=== PATIENT | male | born 1975 | race African-American/Black ===

== ENCOUNTER 2018-02-04 06:40 | Emergency (ER) | payer MEDICAID ==
[~2018-02-04] VITALS: Ht 177.8 cm; Wt 67.2 kg
[2018-02-04 06:40] VITALS: BP 141/87
== END 2018-02-04 07:43 | disposition home or self-care (01) ==
LOC: ED 07:05
DX: J34.0 Abscess, furuncle and carbuncle of nose (principal); F17.200 Nicotine dependence, unspecified, uncomplicated
CPT/HCPCS: 99283

== ENCOUNTER 2019-06-12 02:47 | Emergency (ER) | payer MEDICAID ==
[~2019-06-12] VITALS: Ht 180.3 cm; Wt 74.6 kg
[2019-06-12 02:58] VITALS: BP 138/82
--- NOTE | 2019-06-12 03:16 | NUR ---
THIS IS A 43Y M THAT COMES IN FOR L SIDED FACIAL SWELLING X2DAYS. PT STS "I THOUGHT IT WAS A HAIR BUMP I TRIED TO POP IT AND IT DIDN'T HELP." PT RESTING ON [place] JUNCTION CONNECTED TO MONITORING, REENA SYLVESTER.
[2019-06-12] MEDS ORDERED: CEPHALEXIN 500 MG CAPSULE ONE (03:50)
[2019-06-12] MEDS ORDERED: HYDROcodone/APAP 5/325 TABLET ONE (03:51)
[2019-06-12] MEDS ORDERED: LIDOCAINE-MPF 1%, 5ML ONE (03:51)
--- NOTE | 2019-06-12 03:57 | NUR ---
PT STS DOES NOT WANT ABCESS DRAINED, ONLY WANTS TO TAKE ABX AND SEE IF IT IMPROVES.
--- NOTE | 2019-06-12 03:59 | NUR ---
AT BEDSIDE TO DISCUSS POC WITH PT AT THIS TIME
[2019-06-12] MEDS ORDERED: LIDOCAINE-MPF 1%, 5ML INFIL ONE (04:00)
[2019-06-12] MEDS ORDERED: SULFAMETH./TRIMETHOPRIM DS 800MG/160MG TABLET PO ONE (04:00)
[2019-06-12] MEDS ORDERED: CEPHALEXIN 500 MG CAPSULE PO ONE (04:00)
[2019-06-12] MEDS ORDERED: HYDROcodone/APAP 5/325 TABLET PO ONE (04:00)
[2019-06-12] MEDS ORDERED: SULFAMETH./TRIMETHOPRIM DS 800MG/160MG TABLET ONE (04:01)
--- NOTE | 2019-06-12 04:22 | NUR ---
PT SIGNED AMA FORM, PT EDUCATED ON RISKS OF LEAVING WITHOUT TX. PT VERBALIZED UNDERSTANDING. Patient given discharge instructions and they have confirmed that they understand the instructions. Patient ambulatory with steady gait.
== END 2019-06-12 04:24 | disposition left against medical advice (07) ==
LOC: ED 04:18
DX: L02.01 Cutaneous abscess of face (principal); L03.211 Cellulitis of face; F17.200 Nicotine dependence, unspecified, uncomplicated
CPT/HCPCS: 99283